=== PATIENT | male | born 1985 | race Caucasian/White ===

== ENCOUNTER 2017-03-01 10:41 | Emergency (ER) | payer OTHER ==
[2017-03-01 10:47] VITALS: BP 135/72; PULSE 72; RESP 15; TEMP 98.3; O2SAT 98
--- NOTE | 2017-03-01 11:15 | PD ---
Physical Exam Time Seen by Provider: 11:12 Narrative 31 yo male presents for evaluation after a fall on walking stilts; he reports the stilt got caught on drywall and he fell. HENRRY complaining of R forearm pain. Vital signs reviewed. Seen at triage desk. Awaiting bed placement. Data Data Last Documented VS Vital Signs Date Time Temp Pulse Resp B/P Pulse Ox O2 Delivery O2 Flow Rate FiO2 03/01/17 10:47 98.3 72 15 135/72 98 MDM Medical Record Reviewed: Yes Supervised Visit with YORDY: Caesar Rogers Mar 01, 2017 11:15
--- NOTE | 2017-03-01 12:22 | RADRPT ---
EXAM DATE/TIME: 03/01/2017 11:40 [facility] COMPARISON: No previous studies available for comparison. INDICATIONS : Right elbow pain; fell off stilts today. MEDICAL HISTORY : None. SURGICAL HISTORY : None. ENCOUNTER: Initial ACUITY: 1 day PAIN SCORE: 10/10 LOCATION: Right elbow. FINDINGS: 5 views of the right elbow. Elbow joint effusion. Fracture of the lateral aspect of the radial head w ith intra-articular component. Approximately 1 mm displacement. Alignment within normal limits. CONCLUSION: Intra-articular radial head fracture. Joint effusion. Nawaf Campuzano MD on March 01, 2017 at 12:19 Board Certified Radiologist. This report was verified electronically.
--- NOTE | 2017-03-01 12:24 | RADRPT ---
EXAM DATE/TIME: 03/01/2017 11:42 [facility] COMPARISON: ELBOW RIGHT COMPLETE (4 VWS), March 01, 2017, 11:40. INDICATIONS : Right forearm pain; fell off stilts today. MEDICAL HISTORY : None. SURGICAL HISTORY : None. ENCOUNTER: Initial ACUITY: 1 day PAIN SCORE: 10/10 LOCATION: Right forearm FINDINGS: 2 views of the right forearm. Bone alignment within normal limits. Radial head fracture noted. CONCLUSION: Radial head fracture best seen on elbow series. Nawaf Campuzano MD on March 01, 2017 at 12:21 Board Certified Radiologist. This report was verified electronically.
[2017-03-01] MEDS ORDERED: IBUP800T23 PO (13:13)
--- NOTE | 2017-03-01 13:17 | PD ---
HPI Chief Complaint: Injury Time Seen by Provider: 13:12 Travel History International Travel<30 days: No Contact w/Intl Traveler<30days: No Traveled to known affect area: No History of Present Illness HPI 31-year-old male presents emergency Department with complaint of right elbow pain and bilateral knee pain after falling while on stilts. He said he fell forward and landed on his knees and both of his hands on concrete. He denies hitting his head or loss of consciousness. Denies neck pain or back pain. Has been ambulatory since after the fall. Denies chest pain, shortness of breath, abdominal pain, nausea, vomiting. Denies paresthesias, loss of sensation, to all extremities. Reports decreased range of motion and decreased strength to the right upper extremity. Has not taken any medications or tried any treatments to the symptoms. Has no other medical complaints. Allergies to Abilify, latex, morphine, penicillin, Ritalin, Robaxin. No other modifying factors or associated signs and symptoms. PFSH Social History Tobacco Use: No Allergies-Medications (Allergen,Severity, Reaction): Coded Allergies: Abilify (Verified Allergy, Unknown, 03/01/17) Latex (Verified Allergy, Unknown, 03/01/17) Morphine (Verified Allergy, Unknown, 03/01/17) Penicillin (Verified Allergy, Unknown, 03/01/17) Ritalin (Verified Allergy, Unknown, 03/01/17) Robaxin (Verified Allergy, Unknown, 03/01/17) Reported Meds & Prescriptions Reported Meds & Active Scripts Active Lortab (Hydrocodone-Acetaminophen) 5-325 Mg Tab 1-2 Tab PO Q6H PRN Ibuprofen 800 Mg Tab 800 Mg PO Q6HR PRN Review of Systems Except as stated in HPI: all other systems reviewed are Neg Physical Exam Narrative GENERAL: Well-nourished, well-developed male patient, in no acute distress SKIN: Warm and dry. HEAD: Atraumatic. Normocephalic. No facial or scalp abrasions or lacerations noted. No facial droop noted. Tongue midline. EYES: Pupils equal and round at 3 mm with brisk reaction. No scleral icterus. No injection or drainage. No raccoon eyes. No orbital tenderness on palpation bilaterally. ENT: Mucosa pink and moist. No erythema or exudates. No uvular edema. No uvular , palatal, or tonsillar deviation. Airway patent. Nares without nasal blood, purulent drainage. No rhinorrhea. EARS: Bilateral pinnae and external canals appear within normal limits. Bilateral tympanic membranes without erythema, dullness, hemotympanum or perforation. No otorrhea. No madrigal signs. NECK: Moving freely. Trachea midline. No lymphadenopathy. Active rotation of the neck greater than 45 left and right. No midline point tenderness on palpation of the cervical spine. No obvious deformities. CHEST: Nontender throughout without deformity or crepitance. No retractions or use of accessory muscles. CARDIOVASCULAR: Regular rate and rhythm. No murmur appreciated. RESPIRATORY: No accessory muscle use. Clear to auscultation. Breath sounds equal bilaterally. GASTROINTESTINAL: Abdomen soft, non-tender, nondistended. Hepatic and splenic margins not palpable. Bowel sounds are active 4 quadrants. MUSCULOSKELETAL: Right elbow with tenderness on palpation; with mild edema and without erythema, ecchymosis; patient is able to extend and flex arm slowly; sensory intact; no obvious deformity. Right approximate is supple nontender 2+ radial pulse and sensory intact. Bilateral knees with tenderness on palpation to the patellar aspect; abrasions and mild ecchymosis noted to bilateral knees; without erythema, edema; no obvious deformity; flexion to 90 and joints are stable. Bilateral lower extremities are supple and nontender 2+ pedal pulses and sensory intact and without erythema or edema. No obvious deformities. No clubbing. No cyanosis. No edema. BACK: No midline Point tenderness on palpation of the lumbar or thoracic spine. No obvious deformities. Patient sitting up in bed at 90. NEUROLOGICAL: Awake and alert. Oriented 3. No obvious cranial nerve deficits. Motor grossly within normal limits. Normal speech. Moves all extremities. 5/5 strength to all extremities. Sensory intact. PSYCHIATRIC: Appropriate mood and affect; insight and judgment normal. Data Data Last Documented VS Vital Signs Date Time Temp Pulse Resp B/P Pulse Ox O2 Delivery O2 Flow Rate FiO2 03/01/17 10:47 98.3 72 15 135/72 98 Orders Forearm (2vws) (03/01/17 ) Elbow, Complete (4 Vws) (03/01/17 ) Sling Cradle Arm (03/01/17 ) Knee, Complete (4vws) (03/01/17 13:20) Knee, Complete (4vws) (03/01/17 13:20) Ketorolac Inj (Toradol Inj) (03/01/17 13:30) Acetamin-Hydrocod 325-5 Mg (Electra 5-325 (03/01/17 13:30) MDM Medical Decision Making Medical Screen Exam Complete: Yes Emergency Medical Condition: Yes Medical Record Reviewed: Yes Differential Diagnosis Elbow fracture, elbow contusion, patellar fracture, knee contusion fall Narrative Course 31-year-old male with right elbow injury and bilateral knee injury after falling forward while on stilts. Denies hitting his head or loss of consciousness. Denies nausea, vomiting. On physical exam the patient is without raccoon eyes, madrigal signs, rhinorrhea, or hemotympanum. I do not suspect open or depressed skull fracture, and the patient has no signs of basilar skull fracture. [place] CT Head Injury Rule suggests a head CT is not necessary for this patient and clears the patient for head injury without imaging. Denies neck pain or back pain. [place] C-Spine Rule suggests the C- Spine can be cleared clinically of fracture, and imaging is not required. There is no midline point tenderness on palpation of the cervical spine. The patient is able to actively rotate the neck 45 left and right. The patient is sitting up in bed at 90. The patient is ambulatory. Right elbow, radius/ulna x-rays ordered in triage. Bilateral knee x-rays ordered. Lortab administered in the ER. Last 24 hours Impressions Radius/Ulna X-Ray 03/01/17 0000 Signed Impressions: Service Date/Time: Wednesday, March 01, 2017 11:42 - CONCLUSION: Radial head fracture best seen on elbow series. Nawaf Campuzano MD Elbow X-Ray 03/01/17 0000 Signed Impressions: Service Date/Time: Wednesday, March 01, 2017 11:40 - CONCLUSION: Intra-articular radial head fracture. Joint effusion. Nawaf Campuzano MD Bilateral knee x-rays with no acute findings. Arm sling provided for support. Discussed radial head fracture and early range of motion with patient. Mandatory outpatient referral entered as patient does not have insurance for follow-up. Lortab and ibuprofen prescribed for home. Patient verbalizes understanding and agreement with treatment plan. Patient is medically cleared and stable for discharge. Discussed reasons to return to the emergency department. Instructed patient to follow up with primary care provider. Patient agrees with treatment plan. The patients vital signs are stable and the patient is stable for outpatient follow-up and treatment. Patient discharged home, stable and in no acute distress. Vital Signs Date Time Temp Pulse Resp B/P Pulse Ox O2 Delivery O2 Flow Rate FiO2 03/01/17 10:47 98.3 72 15 135/72 98 Diagnosis Primary Impression: Right radial head fracture Qualified Code: S52.121A - Closed displaced fracture of head of right radius, initial encounter Additional Impression: Knee contusion Qualified Code: S80.00XA - Contusion of knee, unspecified laterality, initial encounter Referrals: Orthopaedic Surgeon Primary Care Physician Patient Instructions: Contusion in Adults (ED), Elbow Fracture in Adults (ED), General Instructions Departure Forms: Tests/Procedures, Work Release Special Instructions: May not return to work until cleared by orthopedic Additional Instructions: Ibuprofen or Tylenol as directed and as needed for pain and inflammation Rest and immobilize the affected extremity Arm sling as needed for support; start early range of motion exercises of right arm in 2-3 days Apply ice to affected area Follow-up with primary care provider Follow-up with orthopedic; a mandatory referral has been ordered for you to follow up outpatient; you receive a phone call to set up an appointment Return to the emergency department immediately with worsening of symptoms Med/Other Pt SpecificInfo: Prescription(s) given Scripts Hydrocodone-Acetaminophen (Lortab)5-325 Mg Tab1-2 Tab PO Q6H PRN (PAIN GREATER THAN 5) #20 TAB Ref 0 Prov:Rebecca Fletcher MD 03/01/17 Ibuprofen 800 Mg [id number] Mg PO Q6HR PRN (PAIN) #30 TAB Ref 0 Prov:Елена Garza 03/01/17 Disposition: 01 DISCHARGE HOME Condition: Stable Елена Garza Mar 01, 2017 13:17
[2017-03-01] MEDS ORDERED: HYDR-3533 PO (13:18)
[2017-03-01] MEDS ORDERED: KETOROLAC TROMETHAMINE 60 MG/2 ML (IM) VIAL IM ONE (13:30)
[2017-03-01] MEDS ORDERED: ACETAMINOPHEN/HYDROcodone 325 MG/5 MG TAB PO ONE (13:30)
--- NOTE | 2017-03-01 14:17 | RADRPT ---
EXAM DATE/TIME: 03/01/2017 13:43 [facility] COMPARISON: No previous studies available for comparison. INDICATIONS : Rigth knee discomfort and cut on anterior aspect; fall from stilts today. MEDICAL HISTORY : None. SURGICAL HISTORY : None. ENCOUNTER: Initial ACUITY: 1 day PAIN SCORE: 5/10 LOCATION: Right knee. FINDINGS: Four view examination of the right knee demonstrates no evidence of fracture or dislocation. Bony mi neralization is normal. The articular surfaces are intact. The suprapatellar soft tissues have a no rmal configuration. No evidence for subcutaneous emphysema or radiopaque foreign body. CONCLUSION: 1. No acute fracture or dislocation. 2. No radiopaque foreign body or subcutaneous emphysema. Burt Robert MD on March 01, 2017 at 14:12 Board Certified Radiologist. This report was verified electronically.
--- NOTE | 2017-03-01 14:19 | RADRPT ---
EXAM DATE/TIME: 03/01/2017 13:44 [facility] COMPARISON: No previous studies available for comparison. INDICATIONS : Left knee discomfort; fall from stilts today. MEDICAL HISTORY : None. SURGICAL HISTORY : None. ENCOUNTER: Initial ACUITY: 1 day PAIN SCORE: 5/10 LOCATION: Left knee FINDINGS: Four view examination of the left knee demonstrates no evidence of fracture or dislocation. Bony min eralization is normal. The articular surfaces are intact. The suprapatellar soft tissues have a nor mal configuration. CONCLUSION: 1. No acute fracture or dislocation. Burt Robert MD on March 01, 2017 at 14:15 Board Certified Radiologist. This report was verified electronically.
== END 2017-03-01 14:24 | disposition home or self-care (01) ==
LOC: NEPK 10:41
DX: S52.121A Displaced fracture of head of right radius, initial encounter for closed fracture (principal); S80.02XA Contusion of left knee, initial encounter; S80.01XA Contusion of right knee, initial encounter; W17.89XA Other fall from one level to another, initial encounter
CPT/HCPCS: 73080; 73090; 73564; 99284

== ENCOUNTER 2017-04-09 22:50 | Emergency (ER) | payer OTHER ==
[~2017-04-09] VITALS: Ht 180.3 cm; Wt 90.0 kg
[~2017-04-09 22:50] MED LIST: HYDR-3533 PO; IBUP800T23 PO
[2017-04-09 22:57] VITALS: BP 142/68; PULSE 75; RESP 16; TEMP 97.5; O2SAT 97
[2017-04-09] MEDS ORDERED: DICL75TA PO (23:31)
--- NOTE | 2017-04-09 23:40 | PD ---
HPI Chief Complaint: Pain: Acute or Chronic Time Seen by Provider: 23:37 Travel History International Travel<30 days: No Contact w/Intl Traveler<30days: No Traveled to known affect area: No History of Present Illness HPI 31-year-old white male presents to emergency Department with complaints of persistent pain in both of his knees. He states that he had a work comp injury on. At that time he was walking on stilts when he fell forward onto his hands and knees. He contused his knees and broke his right radial head. He is followed up by Dr. Chandler the orthopedist. He is currently taking hydrocodone. The patient states that he has not seen a [employer] doctor. He was informed that Dr. Park will not take care of his knees until authorized by [employer]. He states that he has having pain and popping in his knee since the injury. PFSH Past Medical History Narrative Medical ADHD, right radial head fracture ADHD: Yes (as a kid) Tetanus Vaccination: < 5 Years Influenza Vaccination: No Past Surgical History Surgical History: No Previous Surgery Social History Alcohol Use: No Tobacco Use: No Substance Use: No Allergies-Medications (Allergen,Severity, Reaction): Coded Allergies: Abilify (Verified Allergy, Unknown, 04/09/17) Latex (Verified Allergy, Unknown, 04/09/17) Morphine (Verified Allergy, Unknown, 04/09/17) Penicillin (Verified Allergy, Unknown, 04/09/17) Ritalin (Verified Allergy, Unknown, 04/09/17) Robaxin (Verified Allergy, Unknown, 04/09/17) Reported Meds & Prescriptions Reported Meds & Active Scripts Active Diclofenac Sodium DR (Diclofenac Sodium) 75 Mg Tabdr 75 Mg PO BID Lortab (Hydrocodone-Acetaminophen) 5-325 Mg Tab 1-2 Tab PO Q6H PRN Ibuprofen 800 Mg Tab 800 Mg PO Q6HR PRN Review of Systems Except as stated in HPI: all other systems reviewed are Neg Physical Exam Narrative GENERAL: This is a well-nourished, well-developed patient, in no apparent distress. SKIN: No rashes, ecchymoses or lesions. Warm and dry. HEAD: Atraumatic. Normocephalic. EYES: PERRL, EOMI, no discharge or injection. No scleral icterus. EARS: Clear NOSE: Nasal turbinates appear normal. THROAT: Mucosa pink and moist. Airway patent. NECK: Trachea midline. supple, moves head freely. LUNGS: Clear to auscultation. CV: Regular in rhythm. ABDOMEN: Soft nontender. EXT: Examination of right upper extremity reveals pain in the elbow over the radial head. He has full extension and full flexion. No pain in the hand, shoulder the left upper extremity is unremarkable. The lower extremities the patient complains of tenderness over both patellas. He has full range of motion. There is no medial lateral collateral ligament instability. No anterior posterior draw in either knee. He is up and independently ambulatory with a normal gait. He is neurovascular intact distally. The skin is intact. No ecchymosis. Data Data Last Documented VS Vital Signs Date Time Temp Pulse Resp B/P Pulse Ox O2 Delivery O2 Flow Rate FiO2 04/09/17 22:57 97.5 75 16 142/68 97 Room Air Orders Naproxen (Naprosyn) (04/09/17 23:45) MDM Medical Decision Making Medical Screen Exam Complete: Yes Emergency Medical Condition: Yes Medical Record Reviewed: Yes Differential Diagnosis MDM: High Differential diagnoses: Fracture, sprain, strain, dislocation, contusion, neurovascular injury Narrative Course I reviewed the patient's chart from the . I've also reviewed the x-rays. There is no acute bony injury and the knees. He had a radial head fracture. The patient is given Naprosyn 500 mg by mouth here and a prescription for diclofenac. He is advised to follow back with workman's comp. This is bilateral knee contusions Diagnosis Primary Impression: BILATERAL KNEE CONTUSIONS Patient Instructions: General Instructions Additional Instructions: Rest. Elevation. Ice. Follow-up with workman's comp doctor on Wednesday. Return to the ER for emergencies. Med/Other Pt SpecificInfo: Prescription(s) given Scripts Diclofenac Sodium DR 75 Mg Tabdr75 Mg PO BID #20 TAB Prov:Russ Ortiz MD 04/09/17 Disposition: 01 DISCHARGE HOME Condition: Stable Jose Maria Valadez Apr 09, 2017 23:40
[2017-04-09] MEDS ORDERED: NAPROXEN 500 MG TAB PO ONE (23:45)
== END 2017-04-10 00:27 | disposition home or self-care (01) ==
LOC: NEPD 22:50
DX: M25.561 Pain in right knee (principal); S80.01XA Contusion of right knee, initial encounter; S80.02XA Contusion of left knee, initial encounter; W17.89XA Other fall from one level to another, initial encounter; Y93.01 Activity, walking, marching and hiking; Y99.0 Civilian activity done for income or pay
CPT/HCPCS: 99283

== ENCOUNTER 2017-08-01 00:24 | Emergency (ER) | payer OTHER ==
[~2017-08-01] VITALS: Ht 177.8 cm; Wt 88.0 kg
[~2017-08-01 00:24] MED LIST changes: +DICL75TA PO; +IBUP1TAB7 PO; -IBUP800T23 PO
[2017-08-01 00:26] VITALS: BP 132/76; PULSE 78; RESP 16; TEMP 98.1; O2SAT 99
--- NOTE | 2017-08-01 01:14 | PD ---
Physical Exam Date Seen by Provider: Aug 01, 2017 Time Seen by Provider: 01:08 Narrative 31-year-old white male presents to emergency Department with complaints of bilateral knee pain. The patient had a injury back in February when he had fallen on stilts. He states that he had been seen by orthopedics on multiple occasions and was told there was no significant injury to his knees. He states that he has had x-rays, and MRIs. He states that he knows that there is something wrong. He has chronic pain in his knees worse over his kneecaps. He states that he has not been seen recently regarding his pain. He has been back to work on light duty. He states that he has not been working now for the past 3 weeks. He had been in detention for 3 weeks and was just released a few days ago. He has not been back to work since then. Symptoms are [id number]. No alleviating factors. Worsened by walking and climbing. Data Data Last Documented VS Vital Signs Date Time Temp Pulse Resp B/P (MAP) Pulse Ox O2 Delivery O2 Flow Rate FiO2 08/01/17 00:26 98.1 78 16 132/76 (94) 99 Room Air [facility] Medical Record Reviewed: Yes Supervised Visit with YORDY: No Differential Diagnosis Differential diagnoses: Sprain, strain, cartilage injury, chronic pain syndrome , malingering Narrative Course A medical screening exam was performed: At the time of evaluation the presenting medical condition was determined not to be of an emergent nature. The patient was given the option of receiving additional care, but declined. Patient was given options for additional community resources from which to obtain care. The Patient Has Been advised to seek medical attention for their presenting complaint. The patient has been advised to return to the ER at any time if an emergent condition develops. Diagnosis Primary Impression: Encounter for medical screening examination Condition: Jose Maria Edwards Aug 01, 2017 01:14
== END 2017-08-01 02:00 | disposition left against medical advice (07) ==
LOC: NEPD 00:24
DX: M25.562 Pain in left knee (principal)
CPT/HCPCS: 99281